=== PATIENT | male | born 1985 | race Caucasian/White ===

== ENCOUNTER 2023-11-02 01:21 | Emergency (ER) | payer SELFPAY ==
[~2023-11-02] VITALS: Ht 165.1 cm; Wt 55.0 kg
[2023-11-02 01:23] VITALS: O2SAT 99
[2023-11-02] MEDS: LORAZEPAM 1MG TABLET PO ONE (04:48)
[2023-11-02] MEDS: ACETAMINOPHEN 325MG TABLET PO ONE (04:50)
[2023-11-02] MEDS ORDERED: IBUP-2029 MT (05:46)
[2023-11-02 07:28] VITALS: BP 133/75; PULSE 77; RESP 14; TEMP 98.3
== END 2023-11-02 07:31 | disposition home or self-care (01) ==
LOC: ER 01:21
DX: R51.9 Headache, unspecified (principal); R07.89 Other chest pain
CPT/HCPCS: 93005; 99284